=== PATIENT | male | born 1945 | race Caucasian/White ===

== ENCOUNTER 2025-07-28 09:06 | Outpatient (REF) | payer OTHER, SELFPAY ==
--- OUTSIDE RECORDS SUMMARY | 2025-07-26 09:20 | XMS_ITS | Encounter Summary ---
Author Organization [employer] Address [address] [place] [address] Care Team Providers Care Oim Consultant Name Role Phone Saba Segal MD Primary Care Provider [phone] Page Rodríguez Unavailable Encounter Details Date Type Department Care Team ([facility] st Contact Info) Description 07/26/2025 9:20 AM EDT Office Visit [facility] [address] [place] [phone] oLndon Mccollum MD [address] [place] [id number] Subacute cough Social History Tobacco Use Types Packs/Day Years Used Date Smoking Tobacco: Former Cigarettes Smokeless Tobacco: Never Alcohol Use Standard Drinks/Week Comments Never 0 (1 standard drink = 0.6 oz pur e alcohol) Depression Answer Date Recorded Patient Health Questionnaire-9 Score 5 08/22/2024 Patient Health Questionnaire-9 Score 5 08/22/2024 Last PHQ-9: Questionnaire Data Not on file 1 10/22/2023 Housing Stability Answer Date Recorded What is your housing situation today? I have rayna graham 08/22/[address] you li ve. Do you have problems with any of the following? None of the above 08/22/2024 Food Insecurity Answer Date Recorded Within the past 12 months, y ou worried that your food would run out before you got money to buy more: Never True 08/22/2024 Within the past 12 months,th e food you bought just didn't last and you didn't have enough money to get more: Never True 04/2024 Transportation Answer Date Recorded In the past 12 months, has l ack of transportation kept you from medical appts, meetings, work or from getting things needed for daily living? No 08/22/2024 Utilities Answer Date Recorded In the past 12 months, has t he electric, gas, oil or water company threatened to shut off services in your home? I am not sure 08/22/2024 Depression Answer Date Recorded Patient Health Questionnaire-2 Score 0 08/22/2024 Internet Access Answer Date Recorded Internet Access Q1 Yes 08/22/2024 Internet Access Q2 Not on file 08/22/2024 Sex and Gender Information Value Date Recorded Sex Assigned at Male 08/15/2022 10:18 AM EDT Legal Sex Male 10:18 AM EDT Gender Identity Male 08/22/2024 9:58 AM EST Sexual Orientation Choose not to disclose 2021 10:18 AM EDT documented as of this encounter Last Filed Vital Signs Vital Sign Reading Time Taken Comments Blood Pressure 138/75 07/26/2025 9:19 AM EDT Pulse 60 07/26/2025 9:19 AM EDT Temperature 36.6 C (97.9 F) 07/26/2025 9:19 AM EDT Respiratory Rate 19 07/26/2025 9:19 AM EDT Oxygen Saturation 98% 07/26/2025 9:19 AM EDT Inhaled Oxygen Concentration - - Weight 76.3 kg (168 lb 2 oz) 07/26/2025 9:19 AM EDT Height 182.9 cm (6') 07/26/2025 9:19 AM EDT Body Mass Index 22.8 07/26/2025 9:19 AM EDT documented in this encounter Progress Notes * London Mccollum MD - 07/26/2025 9:20 AM EDT Subjective History was provided by the patient. Harris Gomez is a 80 y.o. who presents for evaluation of cough for 2 weeks. Initially dry cough,but recently able to expectorate white sputum. Denies nasal congestion, rhinorrhea, or sore throat.Denies F/C/N/V/D. No CP/SOB. Quit smoking 4-5 years ago, but resumed the spring of this year. However, no smoking since the current symptom onset, 2 weeks ago. Previously used nicotine gum. Objective Vitals: 07/26/25 0919 BP: 138/75 BP Location: Left arm Patient Position: Sitting BP Cuff Size: Adult Pulse: 60 Resp: 19 Temp: 97.9 ??F (36.6 ??C) TempSrc: Oral SpO2: 98% Weight: 168 lb 2 oz (76.3 kg) Height: 6' (1.829 m) Physical Exam Vitals reviewed. Constitutional: General: He is not in acute distress. Appearance: Normal appearance. He is not ill-appearing, toxic-appearing or diaphoretic. HENT: Head: Normocephalic and atraumatic. Right Ear: Tympanic membrane, ear canal and external ear normal. Left Ear: Tympanic membrane, ear canal and external ear normal. Nose: Nose normal. No congestion or rhinorrhea. Mouth/Throat: Mouth: Mucous membranes are dry. Pharynx: Oropharynx is clear. No oropharyngeal exudate or posterior oropharyngeal erythema. Eyes: Extraocular Movements: Extraocular movements intact. Conjunctiva/sclera: Conjunctivae normal. Pupils: Pupils are equal, round, and reactive to light. Cardiovascular: Rate and Rhythm: Normal rate and regular rhythm. Heart sounds: Normal heart sounds. Pulmonary: Effort: Pulmonary effort is normal. No respiratory distress. Breath sounds: Normal breath sounds. No wheezing, rhonchi or rales. Chest: Chest wall: No tenderness. Musculoskeletal: Cervical back: Neck supple. Lymphadenopathy: Cervical: No cervical adenopathy. Skin: General: Skin is warm and dry. Neurological: General: No focal deficit present. Mental Status: He is alert and oriented to person, place, and time. Psychiatric: Mood and Affect: Mood normal. Behavior: Behavior normal. Office Visit on 07/26/2025 Component Date Value Ref Range Status Rapid COVID Ag 07/26/2025 Negative Final QC Media Lot # 07/26/2025 [id number] Final Lot# Expiration Date 07/26/[id number] Final Influenza A 07/26/2025 Negative Negative, Indeterminate Final QC Media Lot # 07/26/2025 [id number] Final Lot# Expiration Date 07/26/2025 [id number] Final Influenza B 07/26/2025 Negative Negative, Indeterminate Final QC Media Lot # 07/26/2025 [id number] Final Lot# Expiration Date 07/26/2025 Final Diagnoses and all orders for this visit: Subacute cough - POCT Rapid Covid-19 BinaxNOW - POCT Rapid Influenza A SETHI ID NOW - POCT Rapid Influenza B SETHI ID NOW - XR Chest 2 Views; Future Patient with a clinical presentation of viral URI 2-week duration of cough with occasional sputum production Normal pulmonary exam and no respiratory distress O2 sat reassuring Rapid COVID-19 and Influenza A/B negative today Given duration of his symptoms, will check chest x-ray Defers any medication for cough suppression at this time Discussed supportive care with ample hydration, sleep position and rest Advised to contact the clinic if no improvement of symptoms Indications for UC/ER use reviewed documented in this encounter Plan of Treatment Scheduled Orders Name Type Priority Associated Diagnoses Orde r Schedule XR Chest 2 Views Imaging Routine Subacute cough Expected: 07/26/2025, Expires: 07/26/2026 documented as of this encounter Procedures Procedure Name Priority Date/Time Associated Diagnosis Comments POCT INFLUENZA B (ID NOW RAPID MOLECULAR) Routine 07/26/2025 9:28 AM EDT Subacute cough POCT INFLUENZA A (ID NOW RAPID MOLECULAR) Routine 07/26/2025 9:28 AM EDT Subacute cough POCT RAPID COVID ANTIGEN Routine 07/26/2025 9:23 AM EDT Subacute cough documented in this encounter Results * POCT Rapid Influenza B SETHI ID NOW (07/26/2025 9:28 AM EDT) Influenza B Negative Negative, Indeterminate [facility] QC Media Lot # [id number] [facility] Lot# Expiration Date [facility] Swab 07/26/2025 9:28 AM EDT us London Mccollum MD POINT OF CARE TEST ENTER/EDIT OR DERABLES Final Result [facility] [address] [place] [address] [phone] * POCT Rapid Influenza A SETHI ID NOW (07/26/2025 9:28 AM EDT) Influenza A Negative Negative, Indeterminate [facility] QC Media Lot # [id number] [facility] Lot# Expiration Date 12,026 [facility] Swab 07/26/2025 9:28 AM EDT us London Mccollum MD POINT OF CARE TEST ENTER/EDIT OR DERABLES Final Result [facility] [address] [place] [address] [phone] * POCT Rapid Covid-19 BinaxNOW (07/26/2025 9:23 AM EDT) Pathologist [facility] Rapid COVID Ag Negative QC Media Lot # [id number] Lot# Expiration Date ,026 Swab 07/26/2025 9:23 AM EDT us London Mccollum MD POINT OF CARE TEST ENTER/EDIT OR DERABLES Final Result documented in this encounter Visit Diagnoses Diagnosis Subacute cough documented in this encounter Additional Health Concerns Assessment Noted Time PHQ-9 Depression Total Score: 5 08/22/20 24 10:18 AM EST documented as of this encounter Care Teams Oim Consultant Relationship Specialty Start Date End Date Saba Segal MD [address] [place] [phone] PCP - General Family Medicine 10/16/18 Page Rodríguez [address] Plastic Surgery 12/19/24 documented as of this encounter
--- NOTE | ~2025-07-28 | XR_ITS ---
EXAMINATION: XR CHEST 2 VIEWS HISTORY: Patient with 2-week duration of cough COMPARISON: There are no prior studies available for comparison. FINDINGS: PA and lateral views of the chest are submitted. The lungs are hyperinflated, consistent with COPD. The lungs are clear. There is no pleural effusion, pneumothorax, or pulmonary vascular congestion. The heart is normal in size. The bones are intact. XR/XR chest 2V IMPRESSION: COPD. The lungs are clear. Electronically signed by: Andres Irvin MD 07/29/2025 07:10 AM EDT
--- OUTSIDE RECORDS SUMMARY | 2025-07-28 09:10 | XMS_ITS | Clinical Summary ---
Author Organization [facility] Address [address] [place] [phone] Phone Care Team Providers Care Repair Service Dispatcher Name Role Phone Saba Segal MD Primary Care Provi kirstin Allergies No known active allergies Medications coenzyme Q10 100 mg capsule Take 100 mg by mouth daily. Active cod liver oil Cap Take 1 capsule by mouth daily. Active ascorbic acid, vitamin C, (VITAMIN C) 250 MG tablet Take 250 mg by mouth daily. Active potassium chloride (MICRO-K) 10 mEq CR capsule Take 10 mEq by mouth 2 (two) times a day. Active glucosamine-chond roitin 500-400 mg Cap Take 1 capsule by mouth 3 (three) times a day. Active bkccusv-lewh-gpxz i-ukwl-egypdf 100 mg-150 mg- 50 mg-150 mg Cap Take 1 capsule by mouth daily. 2 Active red yeast rice 600 mg Cap Take 600 mg by mouth daily. 2 Active metoprolol tartrate (LOPRESSOR) 75 mg Tab tabletIndications :Paroxysmal atrial fibrillation Take 1 tablet (75 mg total) by mouth 2 (two) times a day. 180 tablet 3 2 Active apixaban (ELIQUIS) 5 mg tabletIndications :Paroxysmal atrial fibrillation Take 1 tablet (5 mg total) by mouth 2 (two) times a day. 180 tablet 3 2 Active Active Problems Problem Noted Date Diagnosed Date Chronic obstructive pulmonary disease 05/27/2022 Overview (09/01/2022): Chest CT 05/27/2022 with moderate emphysema PFTs 08/22/2022 Assessment & Plan (09/01/2022 9:52 AM EST): Despite moderate underlying emphysema, only mild airflow obstruction on PFTs with preserved lung volumes and low normal diffusion capacity. Patient remains asymptomatic. Patient has not smoked in over 7 years with no intent on resuming. At this point time, no indication for bronchodilator treatment. Assessment & Plan (05/27/2022 2:07 PM EDT): Moderate upper lobe and right lower lobe centrilobular emphysema noted on chest imaging in a patient with significant history of tobacco exposure. No prior history suggestive of clinically significant COPD. Will plan for full PFTs in 3 months following hospitalization. We will also arrange for outpatient pulmonary follow-up at that time, but can be seen sooner if necessary. Pulmonary edema cardiac cause 05/24/2022 Assessment & Plan (05/27/2022 6:37 PM EDT): Related to A. fib/flutter with RVR and concomitant pneumonia -BNP elevated greater than 2000 on admission. -Lasix 20 mg IV x1 05/24 and x1 05/25 with good diuresis. -BUN and creatinine stable Patient remains euvolemic. Was not previously on Lasix. Now back in sinus rhythm will likely not need ongoing Lasix. -Monitor fluid status. Atrial fibrillation with RVR 05/20/2022 Assessment & Plan (09/01/2022 9:52 AM EST): Patient reports no evidence of atrial fibrillation clinically. We discussed silent A. fib. He has stopped all rate control agents and anticoagulation. We discussed risks of stroke. I encouraged him to follow-up with cardiology. Assessment & Plan (05/27/2022 6:35 PM EDT): A. Fib/flutter: Heart rate improving with addition of metoprolol and low-dose Cardizem. Patient stably in sinus rhythm since 11 AM on 05/25 Echo revealed EF 50 to 55%, normal LV and RV function with mild mitral regurgitation. Blood pressure was low and metoprolol was decreased to 75 mg twice daily and diltiazem discontinued. Patient remains in sinus rhythm in the 60s. -Continue metoprolol to 75 mg twice daily. -Anticoagulated with apixaban Pneumonia due to infectious organism 05/20/2022 Assessment & Plan (05/27/2022 2:04 PM EDT): Right lower lobe community acquired pneumonia, location raises suspicion for possible aspiration. Anaerobic involvement could account for minimal symptomatology. Describes no risk factors for aspiration however. Completed course of antibiotics. However, given the extent of underlying parenchymal lung disease, extended course to 10 days would be reasonable. Assessment & Plan (05/27/2022 6:36 PM EDT): Diagnosed with pneumonia and significant hypoxemia requiring 6 L of O2 initially. Patient was weaned down from 6 L O2 to 4.5 L. Now back up to 5 L with sats 91 to 93% on room air. Leukocytosis resolved Repeat chest x-ray done 05/22 showed worsening coalescence of right lower lobe infiltrate. Repeat chest x-ray today 05/26-minimal improvement in coalescent opacity in right lower lung. 05/27- patient afebrile no leukocytosis resolving cough. -Has completed 5 days of IV antibiotics. CT obtained reveals no PE. Right lower lobe opacity resolving slowly. -Push incentive spirometry. -Pulmonary intervention as above. Ssyv-zp-tydgyy transgender person Overview (05/20/2022): for 10 years, currently presenting as male Assessment & Plan (05/20/2022 6:55 PM EDT): Currently presenting as male. Uses multiple supplements not on hospital formulary. Unable to specify preferred pronouns. Transaminitis Assessment & Plan (05/26/2022 6:12 PM EDT): Mild transaminitis with AST 55 and ALT 58. No significant alcohol use. -Renal labs now back to baseline. Was likely reactive in setting of infection. No abdominal pain or new abdominal symptoms. -No further work-up at present. - Monitor intermittently. Resolved Problems Problem Noted Date Diagnosed Date Resolved Date Hypoxemia 05/27/2022 09/01/2022 Assessment & Plan (05/27/2022 6:34 PM EDT): Patient admitted with hypoxemia was initially thought to be secondary to pneumonia, pulmonary edema. -Pneumonia has been treated and patient has been diuresed adequately no further evidence of pulmonary edema however remains hypoxemic. Chest x-ray revealed minimal improvement in right lower lung opacity. CTA chest performed today for further evaluation and reveals emphysema of the upper lobes, right lower lobe pneumonia with trace right pleural effusion. No PE. Pulmonary consult is appreciated-hypoxia thought to be secondary to emphysema and slowly resolving right lower lobe pneumonia. No other concerning findings such as obstructive pneumonia. Plan - Continue O2 with incentive spirometry. Will likely need O2 on discharge. - Wean O2 to sats of 88% or greater. -Trial of Aerobika - Addition of Tessalon Perles. -Outpatient pulmonary follow-up with PFTs. Assessment & Plan (05/27/2022 2:04 PM EDT): Persistent oxygen requirement following 1 week hospitalization with new onset A. fib with RVR and right lower lobe pneumonia. CT pulmonary angiogram without blood clots, but with clear evidence of significant underlying emphysematous lung disease with superimposed slowly resolving right lower lobe consolidation. Significant VQ mismatch likely accounting for the patient's persistent oxygen requirement. No other concerning findings, i.e. no evidence for postobstructive pneumonia. Patient has incentive spirometry, reviewed technique Add Tessalon Perles to improve tolerance of I-S due to coughing Trial of Aerobika flutter device to improve mucus clearance in addition to his Mucinex Reasonable to wean oxygen tolerating O2 sats 88% or greater as I would expect his needs to rapidly improve over days to the next 1 to 2 weeks. Immunizations Immunization Administration Dates Next Due COVID-19 (Pre-08/07) Pfizer Vaccine, mRNA, PF Influenza High-Dose Trivalent Preservative Free IM 08/11/2017 Family History Medical History Relation Comments Cancer Brother No Known Problems Father Neurological disorder Mother Relation Status Comments Brother Alive Father young juanitakelsi g the lives of others Mother (Age 99) Sister Alive Social History Tobacco Use Types Packs/Day Years Used Date Smoking Tobacco: Former Cigarettes Q uit: 10/16/2014 Smokeless Tobacco: Never Tobacco Cessation:Counseling Given: Not Answered Alcohol Use Standard Drinks/Week Comments Not Currently 0 (1 standard drink = 0.6 oz pur e alcohol) Education Answer Date Recorded Are you interested in more education? Not on sarah e 02/10/2023 Are you concerned about learning? Not on file 02/10/2023 No 02/10/2023 No 02/10/2023 Digital Access Answer Date Recorded No 03/11/2023 No 03/11/2023 Reliable internet access at home? Not on file 03/11/2023 Device with a working camera? Not on file Sex and Gender Information Value Date Recorded Sex Assigned at Male 01/04/2022 10:43 AM EDT Legal Sex Male 10:06 PM EDT Gender Identity Male 01/04/2022 10:43 AM EDT Sexual Orientation Not on file Occupation Industry Job Start Date Job End Date [employer] Not on file Not on file Not on file Last Filed Vital Signs Vital Sign Reading Time Taken Comments Blood Pressure 149/71 09/04/2024 11:31 AM EST Pulse 63 09/04/2024 11:31 AM EST Temperature 36.3 C (97.3 F) 09/04/2024 11:31 AM EST Respiratory Rate 17 09/04/2024 11:31 AM EST Oxygen Saturation 98% 09/04/2024 11:31 AM EST Inhaled Oxygen Concentration - - Weight 79.8 kg (176 lb) 09/04/2024 11:31 AM EST Height 180.3 cm (5' 11 ) 09/04/2024 11:31 AM EST Body Mass Index 24.55 09/04/2024 11:31 AM EST Plan of Treatment Health Maintenance Due Date Last Done Comments DEPRESSION SCREENING 1959 SMOKING Hx and SMOKELESS TOBACCO SCREENING 1960 HEPATITIS C SCREENING 1965 ZOSTER VACCINES (1 of 2) 1997 RSV VACCINE (1 - 1-dose 75+ series) 2022 CREATININE LEVEL 05/26/2023 05/26/2022, 07/2022, 05/23/2022, Additional history exists POTASSIUM LEVEL 05/26/2023 05/26/2022, 05/16, 05/23/2022, Additional history exists INFLUENZA VACCINE (#1) 2025 2, 08/11/2017, 08/11/2016 COVID-19 VACCINE ( season) 2025 08/19/2021, 01/27/2021, 01/02/2021 LIPID PANEL 03/04/2027 03/04/2022 Adult Td,Tdap Booster 08/22/2034 08/22/2024, 014 PNEUMOCOCCAL VACCINES (50+ years) Completed 08/04/2022 HEPATITIS A VACCINES Aged Out No long er eligible based on patient's age to complete this topic HIB VACCINES Aged Out No longer eligi ble based on patient's age to complete this topic MENINGOCOCCAL VACCINES (ACWY) Aged Out No longer eligible based on patient's age to complete this topic MENINGOCOCCAL VACCINES (B) Aged Out N o longer eligible based on patient's age to complete this topic Medical Devices Not on file Procedures Procedure Name Priority Date/Time Associated Diagnosis Comments BASIC METABOLIC PANEL Routine 05/26/2022 5:31 AM EDT from Last 3 Months or Most Recently Relevant to Health Maintenance Results * (ABNORMAL) Basic metabolic panel (05/26/2022 5:31 AM EDT) SODIUM 137 133 - 146 mmol/L [facility] CHLORIDE 101 96 - 108 mmol/L [facility] POTASSIUM 4.4 3.3 - 5.1 mmol/L [facility] CO2 28 21 - 35 mmol/L [facility] BUN 16 6 - 19 mg/dL [facility] CREATININE 0.70 0.5 - 1.5 mg/dL [facility] GLUCOSE 106(H) 70 - 99 mg/dL [facility] CALCIUM 9.4 8.4 - 10.3 mg/dL [facility] EGFR 97 >59 mL/min/1.7 3m2 [facility] Comment:Estimated glomerular filtration rate calculated using the CKD-EPI refit equation. ANION GAP 12 10 - 20 mmol/L [facility] Blood 05/26/2022 5:31 AM EDT 05/26/2022 6:04 AM EDT us Jessi Jones MD LAB BLOOD ORDERABLES Final R esult [facility] [address] [place] [address] from Last 3 Months or Most Recently Relevant to Health Maintenance Insurance MEDICARE PART A & B [facility] MEDICARE [place]PL[place] [address] [address] [address] MEDICARE PART A & B [facility] MEDICARE REPLACEMENT [address], [place] [address] MEDICARE PART A & B [facility] MEDICARE REPLACEMENT MEDICARE PART A & B [facility] MEDICARE REPLACEMENT MEDICARE PART A & B [facility] REPLACEMENT [facility] [address], [place] [address] MEDICARE PART A & B [facility] MEDICARE REPLACEMENT MEDICARE PART A & [place] [id number] [facility] MEDIC[facility] REPLACEMENT [place] [address] MEDICARE PART A & B [facility] MEDIC[facility] REPLACEMENT [facility] MEDICARE PART A & B [facility] MEDICARE REPLACEMENT [facility] Advance Directives For more information, please contact: [phone] (9AM - 5PM Jennifer/[facility], Monday-Monday) * Full Code (Latest Code Status on File) Date Activated Date Inactivated Comments 05/20/2022 6:52 PM Question Answer Comments Code Status Confirmed With: Patient Care Teams Repair Service Dispatcher Relationship Specialty Start Date End Date Luzma, Saba Edwards MD [address] [place] [phone] PCP - General Family Medicine 05/13/22 Additional Source Comments The information contained in this document represents components of the legal health record. It is not the complete legal health record.[facility]
--- OUTSIDE RECORDS SUMMARY | 2025-07-28 09:10 | XMS_ITS | Clinical Summary ---
Author Organization [employer] Address [address] [place] [address] 7t [place] [address] Care Team Providers Care Lead Simulation Modeling Engineer Name Role Phone Saba Segal MD Primary Care Provider [phone]- [phone] Page Rodríguez Unavailable Allergies Active Allergy Reactions Criticality Noted Date Comments Wheat Drowsiness,Insomnia, Mental status change 04/08/2024 Medications omega-3 (Fish Oil) 1000 MG capsule TAKE TWO CAPSULES BY MOUTH TWICE A DAY 06/17/2022 Active D3 50 MCG (1999 UT) tablet Take by mouth in the morning. 03/04/2022 Active coenzyme Q-10 60 MG capsule take one tab po daily 05/14/2015 Active ascorbic acid (Vitamin C) 250 MG tablet Take 250 mg by mouth in the morning. Active Red Yeast Rice Extract 600 MG capsule Take 600 mg by mouth in the morning. 05/31/2022 Active Glucosamine-Cho ndroitin 500-400 MG capsule Take 1 capsule by mouth in the morning and 1 capsule at noon and 1 capsule in the evening. Active Active Problems Problem Noted Date Diagnosed Date Other specified health status 08/22/2023 Overview (08/22/2024): -next comprehensive annual evaluation due after 08/22/2025 -declines eye care referral -[facility] with good fitting dentures -debbie care proxy filed 08/22/2025 Assessment & Plan (08/22/2024 11:24 AM EST): -next comprehensive annual evaluation due after 08/22/2025 -declines eye care referral -edentulous with good fitting dentures -debbie care proxy filed 08/22/2025 Dyslipidemia 08/22/2023 Overview (08/22/2024): Lab Results Component Value Date CHOLESTEROL 240 (H) 03/04/2022 LDLCHOL 161 (H) 03/04/2022 HDLCHOL 64 03/04/2022 CHOLHDLRAT 3.8 03/04/2022 -continue lifestyle modifications -declines recheck at this time Chronic obstructive pulmonary disease 05/27/2022 Overview (08/22/2024): Per pulmonology note on 09/01/22: -Chest CT 05/27/2022 with moderate emphysema -PFTs 08/22/2022 -Despite moderate underlying emphysema, only mild airflow obstruction on PFTs with preserved lung volumes and low normal diffusion capacity. -Patient has not smoked in over 10 years with no intent on resuming. At this point time, no indication for bronchodilator treatment. Assessment & Plan (12/22/2022 12:16 PM EST): Formatting of this note might be different from the Chest CT 05/27/2022 with moderate emphysema PFTs 08/22/2022 Despite moderate underlying emphysema, only mild airflow obstruction on PFTs with preserved lung volumes and low normal diffusion capacity. Patient has not smoked in over 8 years with no intent on resuming. At this point time, no indication for bronchodilator treatment. Plan is to increase exercise as the weather improves. Gender dysphoria 11/16/2012 Overview (12/19/2024): Harris has been exploring their transgender identity. Holley declines a gender therapist at this time and has good support. Has no pronoun preference at this time. -Harris would like referral for facial feminization surgery as this is what is limiting them from presenting with their identity. -Seen with Dr. Page Rodríguez 12/19/24 for intake and has plans for facial feminization surgery. -Risks and benefits of hormonal therapy discussed 09/06/24. Given pt is postmenopausal will hold off at this time with shared decision making. Assessment & Plan (09/11/2024 10:36 AM EST): Harris has been exploring their transgender identity. Holley declines a gender therapist at this time and has good support. Has no pronoun preference at this time. Harris would like referral for facial feminization surgery as this is what is limiting them from presenting with their identity. Referral placed 08/22/24 Risks and benefits of hormonal therapy discussed. Given pt is postmenopausal will hold off at this time. 09/06/24 Assessment & Plan (08/22/2024 11:27 AM EST): Harris has been exploring their transgender identity. Holley declines a gender therapist at this time and has good support. Has no pronoun preference at this time. Harris would like referral for facial feminization surgery as this is what is limiting them from presenting with their identity. Referral placed 08/22/24 Resolved Problems Problem Noted Date Diagnosed Date Resolved Date Gender dysphoria in adult 08/22/2024 Depression 12/22/2022 08/22/2024 Assessment & Plan (12/22/2022 12:17 PM EST): -pt practices excellent wellbeing with exercise, sleep, functional medicine, nutrition, and social connection. -symptoms are not controlled. Declines western medication at this time. Will be increasing exercise as weather improves. Transaminitis 12/21/2022 12/22/2022 Overview (12/21/2022): Last Assessment & Plan: Mild transaminitis with AST 55 and ALT 58. No significant alcohol use. -Renal labs now back to baseline. Was likely reactive in setting of infection. No abdominal pain or new abdominal symptoms. -No further work-up at present. - Monitor intermittently. Pulmonary edema cardiac cause (CMS/HCC) 05/24/2022 12/22/2022 Overview (12/21/2022): Last Assessment & Plan: Related to A. fib/flutter with RVR and concomitant pneumonia -BNP elevated greater than 2000 on admission. -Lasix 20 mg IV x1 8 and x1 8 with good diuresis. -BUN and creatinine stable Patient remains euvolemic. Was not previously on Lasix. Now back in sinus rhythm will likely not need ongoing Lasix. -Monitor fluid status. Atrial fibrillation with RVR (CMS/HCC) 05/20/2022 09/03/2024 Overview (08/22/2024): Admitted to [facility] 05/20/2022 -05/28/2022 for hypoxia and was found to be in A. fib/flutter. Presented to [facility] ED on 05/20/2022 with report of shortness of breath for 2 weeks prior with exertion, decreased mental acuity, with EKG confirming atrial fibrillation with RVR, and imaging evidenceof right lower lobe pneumonia. Afib resolved when COVID improved. Pt self discontinued rate control agent and anticoagulation in shared decision making. Doing well and denies palpitations. Assessment & Plan (12/22/2022 12:15 PM EST): -no evidence of atrial fibrillation clinically -self d/c stopped rate control agent and anticoagulation Pneumonia due to infectious organism 05/20/2022 12/22/2022 Overview (12/21/2022): Last Assessment & Plan: Right lower lobe community acquired pneumonia, location raises suspicion for possible aspiration. Anaerobic involvement could account for minimal symptomatology. Describes no risk factors for aspiration however. Completed course of antibiotics. However, given the extent of underlying parenchymal lung disease, extended course to 10 days would be reasonable. Tobacco dependence syndrome 03/19/2014 12/22/2022 Encounters Date Type Department Care Team Description 07/26/2025 9:20 AM EDT Office Visit [facility] [address] [place] [phone] London Mccollum MD Subacute cough 07/26/2025 Travel from Last 3 Months Immunizations Immunization Administration Dates Next Due Influenza High-dose Quadriva lent Preservative Free 08/04/2022 Influenza injectable quadriv alent IIV4 with preservative 08/11/2016 Influenza, High Dose Seasona l, Preservative Free 08/22/2024,08/11/2017 Pfizer Covid-19 Vaccine 12+ 08/19/2021,,01/02/2021 Pneumococcal Conjugate PCV 13 05/14/2015 Pneumococcal Conjugate PCV 20 08/04/2022 Tdap 08/22/2024,02/13/2014 Zoster, live 05/14/2015 Social History Tobacco Use Types Packs/Day Years Used Date Smoking Tobacco: Former Cigarettes Smokeless Tobacco: Never Tobacco Cessation:Counseling Given: Not Answered Alcohol Use Standard Drinks/Week Comments Never 0 (1 standard drink = 0.6 oz pur e alcohol) Depression Answer Date Recorded Patient Health Questionnaire-9 Score 5 08/22/2024 Patient Health Questionnaire-9 Score 5 08/22/2024 Last PHQ-9: Questionnaire Data Not on file 1 10/22/2023 Housing Stability Answer Date Recorded What is your housing situation today? I have rayna santos 08/22/[address] you li [...] not to disclose 2021 10:18 AM EDT Last Filed Vital Signs Vital Sign Reading [...] Mass Index 22.8 07/26/2025 9:19 AM EDT Plan of Treatment Health Maintenance Due Date Last Done Comments Alcohol/Substance Use Screening 08/22/2025 08/22/2024 Depression Screening 08/22/2025 08/22/2024, 08/22/20 24 Hepatitis C Screening 08/22/2025 Postpo trever from 1965 (Patient Refused) SDOH Screening 08/22/2025 08/22/2024 COVID-19 Vaccine ( season) 2026 07/14/2025, 08/19/2021, 01/27/2021, Additional history exists Tobacco Screening 07/26/2026 07/26/2025 Lipid Panel 03/04/2027 03/04/2022 DTaP/Tdap/Td Vaccines (3 - Td or Tdap) 08/22/2034 08/22/2024, 02/13/2014 Zoster Vaccines Discontinued 05/14/2015 Pneumococcal Vaccine: 50+ Years Completed 08/04/2022, 05/14/2015 Influenza Vaccine Completed 07/14/2025, , 08/04/2022, Additional history exists HIB Vaccines Aged Out No longer eligi ble based on patient's age to complete this topic HPV Vaccines Aged Out No longer eligi ble based on patient's age to complete this topic Hepatitis A Vaccines Aged Out No long er eligible based on patient's age to complete this topic Hepatitis B Vaccines Aged Out No long er eligible based on patient's age to complete this topic IPV Vaccines Aged Out No longer eligi ble based on patient's age to complete this topic Meningococcal B Vaccine Aged Out No l onger eligible based on patient's age to complete this topic Meningococcal Vaccine Aged Out No peña halle eligible based on patient's age to complete this topic RSV Patients and Patients Aged 60 years or older Discontinued RSV under 20 months Aged Out No longe r eligible based on patient's age to complete this topic Rotavirus Vaccines Aged Out No longer eligible based on patient's age to complete this topic Procedures Procedure Name Priority Date/Time Associated Diagnosis Comments POCT INFLUENZA B (ID NOW RAPID MOLECULAR) Routine 07/26/2025 9:28 AM EDT Subacute cough POCT INFLUENZA A (ID NOW RAPID MOLECULAR) Routine 07/26/2025 9:28 AM EDT Subacute cough POCT RAPID COVID ANTIGEN Routine 07/26/2025 9:23 AM EDT Subacute cough LIPID PANEL, STANDARD Routine 03/04/2022 10:09 AM EDT from Last 3 Months or Most Recently Relevant to Health Maintenance Results * POCT Rapid Influenza B SETHI ID NOW (07/26/2025 9:28 AM EDT) Influenza B Negative Negative, Indeterminate [facility] QC Media Lot # [id number] [facility] Lot# Expiration Date [facility] Swab 07/26/2025 9:28 AM EDT London Mccollum MD POINT OF CARE TEST ENTER/EDIT OR DERABLES Final Result [facility] [address] [place] [address] [phone] * POCT Rapid Influenza A SETHI ID NOW (07/26/2025 9:28 AM EDT) Influenza A Negative Negative, Indeterminate [facility] QC Media Lot # [id number] [facility] Lot# Expiration Date [facility] Swab 07/26/2025 9:28 AM EDT us London Mccollum MD POINT OF CARE TEST ENTER/EDIT OR DERABLES Final Result [facility] [address] [place] [address] [phone] * POCT Rapid Covid-19 BinaxNOW (07/26/2025 9:23 AM EDT) Rapid COVID Ag Negative QC Media Lot # [id number] Lot# Expiration Date [id number] Swab 07/26/2025 9:23 AM EDT us London Mccollum MD POINT OF CARE TEST ENTER/EDIT OR DERABLES Final Result * (ABNORMAL) LIPID PANEL, STANDARD (03/04/2022 10:09 AM EDT) Pathologist [facility] Chol/HDLC Ratio 3.8 <5.0 (calc) [facility] Cholesterol, Total 240(H) <200 mg/dL [facility] HDL Cholesterol 64 > OR = 40 mg/dL [facility] LDL Cholesterol 161(H) mg/dL (calc) [facility] Comment: Reference range: <100 Desirable range <100 mg/dL for primary prevention; <70 mg/dL for patients with CHD or diabetic patients with > or = 2 CHD risk factors. LDL-C is now calculated using the Elliott-Armando calculation, which is a validated novel method providing better accuracy than the Friedewald equation in the estimation of LDL-C. Elliott THRASHER et al. BHUMI. 2013;310(19): 9820-4779 (http://education.[facility].com/faq/QSV456) Non-HDL Cholesterol 176(H) <130 mg/dL (calc) [facility] Comment: For patients with diabetes plus 1 major ASCVD risk factor, treating to a non-HDL-C goal of <100 mg/dL (LDL-C of <70 mg/dL) is considered a therapeutic option. Triglycerides 49 <150 mg/dL [facility] 03/04/2022 10:0 9 AM EDT us Saba Segal MD LAB BLOOD ORDERABLES Final Result [facility] [address] from Last 3 Months or Most Recently Relevant to Health Maintenance Insurance [employer]M [employer] (HMO D-SNP) [place] [id number] Care Teams Lead Simulation Modeling Engineer Relationship Specialty Start Date End Date Saba Segal MD [address] [place] [id number] PCP - General Family Medicine 10/16/18 Page Rodríguez [address] - [address] [place] [address] Plastic Surgery 12/19/24
--- OUTSIDE RECORDS SUMMARY | 2025-07-28 09:10 | XMS_ITS | Encounter Summary ---
Author Organization [facility] Address [facility] [address] [place] [phone] Phone Care Team Providers Care Windows Phone Developer Name Role Phone Saba Segal MD Primary Care Provi kirstin Encounter Details Date Type Department Care Team (Late st Contact Info) Description 05/20/2022 Procedure Pass [facility] [address] [place] [address] Social History Tobacco Use Types Packs/Day Years Used Date Smoking Tobacco: Former Cigarettes Q uit: 10/16/2014 Smokeless Tobacco: Never Alcohol Use Standard Drinks/Week Comments Not Currently 0 (1 standard drink = 0.6 oz pur e alcohol) Sex and Gender Information Value Date Recorded Sex Assigned at Male 01/04/2022 10:43 AM EDT Legal Sex Male 10:06 PM EDT Gender Identity Male 01/04/2022 10:43 AM EDT Sexual Orientation Not on file Occupation Industry Job Start Date Job End Date [employer] Not on file Not on file Not on file documented as of this encounter Functional Status * Calculated C-SSRS Risk Score (Lifetime/Recent) Answer Date of Assessment Author No Risk Indicated 05/20/2022 1:19 PM EDT Leann Valenzuela RN * Singer Suicide Severity Rating Scale (Screener/Recent Self-Report) Question Answer Date of Assessment Author 1. Wish to be (Past 1 Month) No 022 1:19 PM EDT Leann Valenzuela, CHRISTIANA 2. Non-Specific Active Suici lucien Thoughts (Past 1 Month) No 05/20/2022 1:19 PM EDT Nicolas, Leann , RN 6. Suicidal Behavior (Lifetime) No 2 1:19 PM EDT Leann Valenzuela RN documented as of this encounter Plan of Treatment Not on file documented as of this encounter Visit Diagnoses Not on filedocumented in this encounter Additional Health Concerns Infection Onset Date Last Indicated Resolved Time CoV-Risk 05/13/2022 05/20/2022 05/22/2022 4:35 PM EDT documented as of this encounter Care Teams Windows Phone Developer Relationship Specialty Start Date End Date Winger, Saba Edwards MD [address] [place] [id number] PCP - General Family Medicine 05/13/22 documented as of this encounter Additional Source Comments The information contained in this document represents components of the legal health record. It is not the complete legal health record.[facility]
--- OUTSIDE RECORDS SUMMARY | 2025-07-28 09:10 | XMS_ITS | Clinical Summary ---
Author Organization [facility] Address [address] [place] [address] Care Team Providers Care Pilot Control Operator Helper Name Role Phone Saba Segal Primary Care Provider Allergies No known active allergies Medications ascorbic acid, vitamin C, (VITAMIN C) 250 mg tablet Take 250 mg by mouth daily. Active COD LIVER OIL ORAL Take 1 capsule by mouth daily. Active Social History Tobacco Use Types Packs/Day Years Used Date Smoking Tobacco: Never Assessed Sex and Gender Information Value Date Recorded Sex Assigned at Male 12/01/2024 8:28 AM EST Legal Sex X 08/30/2024 9:56 AM EST Gender Identity Choose not to disclose 9:59 AM EST Sexual Orientation Not on file Plan of Treatment Health Maintenance Due Date Last Done Comments Hepatitis C Screening 1945 Zoster Vaccines (2 of 3) 07/09/2015 05/14/2015 RSV Vaccine (60+ years old and patients) (1 - 1-dose 75+ series) 2022 Alcohol/Substance Use Screening 10/16/2024 Depression Screening and Follow-Up 10/16/2024 Health Care Proxy Review 10/16/2024 Social Drivers of Health Annual Screening 10/16/2024 COVID-19 Vaccine ( season) 2025 08/19/2021, 01/27/2021, 01/02/2021 Influenza Vaccine (#1) 2025 , 08/04/2022, 08/11/2017, Additional history exists DTaP,Tdap,and Td Vaccines (3 - Td or Tdap) 08/22/2034 08/22/2024, 02/13/2014 Pneumococcal Vaccine: 50+ Years Completed 08/04/2022, 05/14/2015 Hepatitis B Vaccines Aged Out No long er eligible based on patient's age to complete this topic Insurance * Guarantor: Oliver Gomez Account Type Relation to Patient Date of Phone Billing Address Personal/Family Self 1945 [address] [facility] [address] [place] [address] [facility] [place] [id number] Care Teams Pilot Control Operator Helper Relationship Specialty Start Date End Date Edgard, Saba Diallo [address] [place] [id number] PCP - General Family Medicine 08/30/24
--- OUTSIDE RECORDS SUMMARY | 2025-07-28 09:10 | XMS_ITS | Encounter Summary ---
Author Organization [employer] Address [address] [facility] [address] [place] [address] Care Team Providers Care Printer Slotter Helper Name Role Phone Saba Segal MD Primary Care Provider [phone]- [phone] Page Rodríguez Unavailable Encounter Details Date Type Department Care Team (Latest Contact Info) Description 07/26/2025 Travel Social History Tobacco Use Types Packs/Day Years [...] AM EDT documented as of this encounter Plan of Treatment Not on file documented as of this encounter Visit Diagnoses Not on filedocumented in this encounter Additional Health Concerns Assessment Noted Time PHQ-9 Depression Total Score: 5 08/22/20 24 10:18 AM EST documented as of this encounter Care Teams Printer Slotter Helper Relationship Specialty Start Date End Date aSba Segal MD [address] [place] [phone] PCP - General Family Medicine 10/16/[address] [facility] [address] Plastic Surgery 12/19/24 documented as of this encounter
--- OUTSIDE RECORDS SUMMARY | 2025-07-28 09:10 | XMS_ITS | Encounter Summary ---
Author Organization [facility] Address [address] [place] [address] Phone Care Team Providers Care Manager Of Community Relations Name Role Phone Saba Segal MD Primary Care Provi kirstin Encounter Details Date Type Department Care Team (Late st Contact Info) Description 05/20/2022 Procedure Pass [facility], Ct Scan - [address] [address] Social History Tobacco Use Types Packs/Day Years [...] 1:19 PM EDT Leann Valenzuela RN * Payne Suicide Severity Rating Scale (Screener/Recent Self-Report) Question Answer Date of Assessment Author 1. Wish to be (Past 1 Month) No 022 1:19 PM EDT Leann Valenzuela RN 2. Non-Specific Active Suici lucien Thoughts (Past 1 Month) No 05/20/2022 1:19 PM EDT Leann Valenzuela , RN 6. Suicidal Behavior (Lifetime) No 1:19 PM EDT Leann Valenzuela RN documented as of this encounter Plan of Treatment Not on file documented as of this encounter Visit Diagnoses Not on filedocumented in this encounter Additional Health Concerns Infection Onset Date Last Indicated Resolved Time CoV-Risk 05/13/2022 05/20/2022 05/22/2022 4:35 PM EDT documented as of this encounter Care Teams Manager Of Community Relations Relationship Specialty Start Date End Date Saba Segal MD [address] [place] [address] PCP - General Family Medicine 05/13/22 documented as of this encounter Additional Source Comments The information contained in this document represents components of the legal health record. It is not the complete legal health record.[facility]
--- OUTSIDE RECORDS SUMMARY | 2025-07-28 09:10 | XMS_ITS | Encounter Summary ---
Author Organization [facility] Address [facility] [address] [place] [phone] Phone Care Team Providers Care Hob Mill Operator Name Role Phone Saba Segal MD Primary Care Provi kirstin Encounter Details Date Type Department Care Team (Late st Contact Info) Description 05/27/2022 Procedure Pass [facility], Ct Scan - [address] [address] Social History Tobacco Use Types Packs/Day Years [...] on file documented as of this encounter Plan of Treatment Not on file documented as of this encounter Visit Diagnoses Not on filedocumented in this encounter Care Teams Hob Mill Operator Relationship Specialty Start Date End Date Saba Segal MD [address] [place] [phone] PCP - General Family Medicine 05/13/22 documented as of this encounter Additional Source Comments The information contained in this document represents components of the legal health record. It is not the complete legal health record.[facility]
== END 2025-07-28 09:07 | disposition home or self-care (01) ==
LOC: HO.HHCX 09:06
PROVIDERS: PCP Family Medicine; Visit Provider Family Medicine
DX: R05.2 Subacute cough (principal)
CPT/HCPCS: 71046

== ENCOUNTER → 2025-07-28 09:11 | Outpatient (BNV) | payer OTHER, SELFPAY | PROVIDERS: PCP Family Medicine; Visit Provider Radiology Diagnostic Radiology | DX: J44.9 Chronic obstructive pulmonary disease, unspecified (principal) | CPT/HCPCS: 71046 ==